=== PATIENT | male | born 1960 | race Caucasian/White ===

== ENCOUNTER 2017-03-15 22:16 | Observation (INO) ==
[2017-03-15] MEDS ORDERED: ASPIRIN CHEW 81 MG TABLET PO STA (23:20)
[2017-03-15] MEDS ORDERED: NITROGLYCERIN SL 0.4 MG TABLET SL PRN (23:20)
[2017-03-15] MEDS ORDERED: ONDANSETRON 4 MG/2 ML VIAL IV PRN (23:22)
[2017-03-15 23:28] LABS: Basophils % 0.4 % (0.0-0.8); Eosinophils # 0.1 10*3/uL (0.0-0.87); Eosinophils % 0.9 % (0.00-10.9); Hematocrit 40.3 VOL% (42.0-52.0); Hemoglobin 13.7 GM/DL (14.0-18.0); Immature Granulocytes % 0.3 %; Immature Granulocytes Absolute 0.02 #; Lymphocytes # 2.5 10*3/uL (1.4-4.0); Lymphocytes % 31.1 % (21.2-54.2); Mean Corpuscular Hemoglobin 32 PG (27-34); Mean Corpuscular Volume 92.9 FL (87-102); Mean Platelet Volume 11.6 FL (9.6-12.0); Monocytes % 12.1 % (1.7-12.7); Neutrophils # 4.4 10*3/uL (1.4-7.4); Neutrophils % 55.2 % (38.7-73.9); Platelet Count 213 T/CUMM (130-400); Red Blood Count 4.34 MC/CUMM (3.8-5.5); Red Cell Distribution Width 12.2 % (9.3-17.3); White Blood Count 7.9 T/CUMM (4-12)
[2017-03-15 23:33] LABS: PT Patient Result 10.1 SECS; Partial Thromboplastin Time 29.8 SECS (0-40)
[2017-03-15 23:40] LABS: Calcium 8.3 MG/DL (8.5-10.1); Osmolality,Calculated 285.1 MOS/KG (273-304); Potassium 4.2 MMOL/L (3.5-5.1)
[2017-03-16] MEDS ORDERED: ASPIRIN CHEW 81 MG TABLET PO ONE (00:03)
[2017-03-16] MEDS ORDERED: SODIUM CHLORIDE 0.9% 1,000 ML IV SCH (01:30)
[2017-03-16] MEDS ORDERED: CLORAZEPATE 3.75 MG TABLET PO PRN (01:33)
[2017-03-16 05:58] LABS: Basophils % 0.4 % (0.0-0.8); Eosinophils # 0.1 10*3/uL (0.0-0.87); Eosinophils % 1.3 % (0.00-10.9); Hematocrit 37.3 VOL% (42.0-52.0); Hemoglobin 12.9 GM/DL (14.0-18.0); Immature Granulocytes % 0.3 %; Immature Granulocytes Absolute 0.02 #; Lymphocytes # 3.3 10*3/uL (1.4-4.0); Lymphocytes % 48.2 % (21.2-54.2); Mean Corpuscular HGB Conc 34.6 GM/DL (32-36); Mean Corpuscular Hemoglobin 32 PG (27-34); Mean Corpuscular Volume 91.9 FL (87-102); Mean Platelet Volume 11.9 FL (9.6-12.0); Monocytes # 0.9 10*3/uL (0.11-0.8); Monocytes % 12.8 % (1.7-12.7); Neutrophils # 2.5 10*3/uL (1.4-7.4); Platelet Count 179 T/CUMM (130-400); Red Blood Count 4.06 MC/CUMM (3.8-5.5); Red Cell Distribution Width 12.3 % (9.3-17.3); White Blood Count 6.8 T/CUMM (4-12)
[2017-03-16 06:49] LABS: Calcium 8.3 MG/DL (8.5-10.1); Osmolality,Calculated 283.1 MOS/KG (273-304); Thyroid Stimulating Hormone 0.973 uIU/ml (0.358-3.74)
[2017-03-16 07:23] LABS: Troponin I Only < 0.015 NG/ML (0.00-0.045)
[2017-03-16 08:12] LABS: Eosinophils 1 % (0-10); Giant Platelets Few; Hypochromasia 1+; Lymphocytes 48 % (20-55); Platelet Estimate Normal; Segmented Neutrophils 38 % (50-85); Total Cells Counted 100
[2017-03-16] MEDS ORDERED: TICAGRELOR 90 MG TABLET PO SCH (09:00)
[2017-03-16] MEDS ORDERED: PANTOPRAZOLE 40 MG TABLET PO SCH (09:00)
[2017-03-16] MEDS ORDERED: ASPIRIN EC 81 MG TABLET PO SCH (09:00)
[2017-03-16] MEDS ORDERED: FOSINOPRIL 10 MG TABLET PO SCH (11:00)
[2017-03-16 13:25] LABS: Troponin I Only < 0.015 NG/ML (0.00-0.045)
[2017-03-16 13:31] VITALS: BP 124/85
[2017-03-16] MEDS ORDERED: ROSUVASTATIN 20 MG TABLET PO SCH (21:00)
== END 2017-03-16 15:20 | disposition home or self-care (01) ==
LOC: EDBD → EDUNIT# → N.ED 22:16 → N.EDINP 22:16 → SUATTDRO 03-16 01:02 → N.TELES 03-16 01:49
PROVIDERS: ADMIT Family Medicine; ATTEND Internal Medicine